=== PATIENT | male | born 1950 | race Caucasian/White ===

== ENCOUNTER 2018-08-06 16:28 | Emergency (ER) | payer MEDICARE, MEDICAID, SELFPAY ==
--- NOTE | 2018-08-06 16:34 | ED.FALL ---
HPI - Fall <JOHN Regalado - Last Filed: 08/06/18 22:25> General Chief Complaint: Fall Stated Complaint: GLF, Abrasion Time Seen by Provider: 08/06/18 16:33 Source: patient Mode of arrival: ambulatory Limitations: no limitations History of Present Illness HPI Narrative: 67-year-old male who denies any medical history denies any social history here for complaint of fall earlier today. He was brought in by ambulance due to the fall. He does report that he was drinking at the [employer] earlier today he states he had 4-5 drinks. He denies any pain no nausea or vomiting. He is able to bear weight and ambulate. He denies any other injuries or concerns at this timeframe. MD complaint: fall Related Data Previous Rx's Medication Instructions Recorded [HYDYOCORTISONE] 1 gm TOPICAL BID #30 08/20/16 cholecalciferol (vitamin D3) 2,000 unit PO QDAY #90 cap 08/21/16 [Vitamin D3] cyanocobalamin (vitamin B-12) 5,000 mcg SUBLINGUAL QDAY #90 08/21/16 [Vitamin B-12] multivitamin [Multiple Vitamins] 1 tab PO QDAY #90 tab 08/21/16 vitamin E 400 unit PO QDAY #90 cap 08/21/16 zoster vaccine live (PF) [Zostavax 0.5 ml SQ ONCE #0.5 ml 10/20/16 (PF)] melatonin 3 mg PO HS #90 tab 10/27/16 acetaminophen 650 mg PO Q8HP PRN #30 tab 12/15/16 lisinopril 20 mg PO QDAY #90 tab 12/25/16 cyclobenzaprine 10 mg PO SEE INSTRUCTIONS #20 tab 02/05/17 baclofen 0 PO TID #90 tab 03/24/17 meclizine 25 mg PO Q DAY PRN PRN #30 tab 08/19/17 aspirin 81 mg PO QDAY #90 tab 09/17/17 simvastatin 20 mg PO HS #90 tab 10/19/17 levetiracetam [Keppra] 1,000 mg PO BID #180 tab 04/20/18 clopidogrel 75 mg tablet 75 mg PO QDAY #30 tab 07/09/18 Allergies Allergy/AdvReac Type Severity Reaction Status Date / Time No Known Drug Allergies Allergy Verified 08/06/18 18:18 Review of Systems <JOHN Regalado - Last Filed: 08/06/18 22:25> Constitutional Denies chills, Denies fever(s), Denies lethargy and Denies weakness Eyes Denies change in vision, Denies eye discharge, Denies irritation and Denies loss of vision ENT Comments: Ground level fall hitting forehead Cardiovascular Denies chest pain, Denies irregular heart rhythm, Denies lightheadedness, Denies palpitations, Denies dyspnea, Denies dyspnea on exertion and Denies orthopnea Respiratory Denies cough, Denies dyspnea, Denies dyspnea on exertion and Denies wheezing Gastrointestinal Gastrointestinal: Denies abdominal pain, Denies change in bowel habits, Denies diarrhea, Denies nausea and Denies vomiting Genitourinary Denies hematuria, Denies flank pain, Denies urinary incontinence and Denies urinary urgency Musculoskeletal Denies back pain, Denies muscle weakness, Denies numbness and Denies tingling Integumentary/Breasts Denies pruritus, Denies erythema, Denies rash and Denies wounds Neurologic Denies confusion, Denies loss of vision, Denies numbness, Denies tingling and Denies weakness Psychiatric Denies anxiety, Denies confusion, Denies depression, Denies homicidal ideation and Denies suicidal ideation Endocrine Denies palpitations Hematologic/Lymphatic Denies easy bruising Allergic/Immunologic Denies wheezing Exam <JOHN Regalado - Last Filed: 08/06/18 22:25> Initial Vital Signs Initial Vital Signs: Vital Signs Temperature 98.6 F 08/06/18 17:00 Pulse Rate 84 08/06/18 17:00 Respiratory Rate 15 08/06/18 17:00 Blood Pressure 165/114 H 08/06/18 17:00 Pulse Oximetry 96 08/06/18 17:00 Const General: cooperative and well developed Nutritional Appearance: well nourished Orientation: alert, awake, oriented x3 and not confused [facility] Head: other (Small abrasion to left forehead) Mouth: oral mucosae normal and moist mucous membranes Eyes Conjunctivae: conjunctivae normal Sclera: sclerae normal Pupils: PERRL EOM: EOM intact bilaterally Neck Neck: normal visual inspection, trachea midline, No lymphadenopathy, No midline deformity and No JVD Lymphatic: No lymphedema Resp Effort & Inspection: normal respiratory effort, able to speak in complete sentences, no respiratory distress and no use of accessory muscles Auscultation: clear to auscultation bilaterally, no rales, no rhonchi and no wheezes Cardio Rate: regular rate Rhythm: regular rhythm Heart Sounds: no click, no gallops, no murmurs and no rubs Pulses: normal peripheral pulses GI Inspection: non-distended Palpation: soft, no hepatosplenomegaly, No guarding, No pulsatile mass and No tender Auscultation: normal bowel sounds Neuro General: alert, oriented x3, gait normal and no focal motor deficits Speech: speech normal <Jenna Mercer DO - Last Filed: 08/12/18 21:51> Initial Vital Signs Initial Vital Signs: Vital Signs Temperature 98.6 F 08/06/18 17:00 Pulse Rate 84 08/06/18 17:00 Respiratory Rate 15 08/06/18 17:00 Blood Pressure 165/114 H 08/06/18 17:00 Pulse Oximetry 96 08/06/18 17:00 Course <JOHN Regalado - Last Filed: 08/06/18 22:25> Orders Ordered: ED Orders 08/06/18 16:45 CT cervical spine wo con Stat CT head/brain wo con Stat Vital Signs - 8 hr 08/06/18 17:00 08/06/18 17:48 Temperature 98.6 F Pulse Rate 84 80 Respiratory Rate 15 18 Blood Pressure [Right Arm] 165/114 H 140/99 H Pulse Oximetry 96 99 <Jenna Mercer DO - Last Filed: 08/12/18 21:51> Orders Ordered: ED Orders 08/06/18 16:45 CT cervical spine wo con Stat CT head/brain wo con Stat Vital Signs - 8 hr 08/06/18 17:00 08/06/18 17:48 Temperature 98.6 F Pulse Rate 84 80 Respiratory Rate 15 18 Blood Pressure [Right Arm] 165/114 H 140/99 H Pulse Oximetry 96 99 MDM - Fall <JOHN Regalado - Last Filed: 08/06/18 22:25> Lab Data Point of Care Testing Breathalizer 0.18 Urine Dip Bedside Urine Glucose Negative Bedside Urine Bilirubin - Negative Bedside Urine Ketone - Negative Urine Specific [place] 1.010 Bedside Urine Occult Blood - Negative Bedside Urine pH 6.0 Bedside Urine Protein - Negative Bedside Urine Urobilinogen - Negative Bedside Urine Nitrite - Negative Bedside Urine Leukocytes - Negative Esterase Imaging Data c spine ct: Radiologist's impression: View Report History Print [address] [address] [address] Scan Report Signed Patient: Yassine Bledsoe MR#: [id number] : 1950 Acct:[id number] Age/Sex: 67 / M Date of Service: 08/06/18 Loc: ED Accession Number: [id number] Procedure: CT cervical spine wo con Ordering Provider: Mirza Marinelli PROCEDURE: CT CERVICAL SPINE WO CON INDICATIONS: Ground level fall striking forehead with ETOH intoxication TECHNIQUE: Noncontrast 3 mm thick sections acquired from the skull base to the T4 level. Sagittal and coronal reformats were then constructed. For radiation dose reduction, the following was used: automated exposure control, adjustment of mA and/or kV according to patient size. COMPARISON: None. FINDINGS: Image quality: Excellent. Bones: No acute fracture or dislocation. Severe degenerative changes present throughout the cervical spine. There is fusion at C4-C6. Soft tissues: Prevertebral soft tissues are normal in thickness. No paravertebral hematomas. No apical pneumothoraces. Atherosclerotic calcifications are present within the bilateral carotid arteries. IMPRESSION: 1. No acute cervical spine injury. 2. Severe degenerative change and mid cervical spine fusion. 3. Carotid atherosclerosis. Dictated by: Jenae Saavedra M.D. on 08/06/2018 at 17:17 Approved by: Jenae Saavedra M.D. on 08/06/2018 at 17:20 CT scan - head: Radiologist's impression: [address] [address] [address] Scan Report Signed Patient: Yassine Bledsoe MR#: [id number] : 1950 Acct:[id number] Age/Sex: 67 / M Date of Service: 08/06/18 Loc: ED Accession Number: [id number] Procedure: CT head/brain wo con Ordering Provider: Mirza Marinelli PROCEDURE: CT HEAD/BRAIN WO CON INDICATIONS: Ground level fall hitting head ETOH intoxication TECHNIQUE: Noncontrast 4.5 mm thick angled axial sections acquired from the foramen magnum to the vertex, with coronal and sagittal reformats. For radiation dose reduction, the following was used: automated exposure control, adjustment of mA and/or kV according to patient size. COMPARISON: None. FINDINGS: Image quality: Excellent. CSF spaces: Basal cisterns are patent. No extra-axial fluid collections. The ventricles are symmetric in size and shape. Brain: No intracranial bleeds or masses. There is cerebral volume loss for age, with resultant ventricular and sulcal prominence. There are periventricular and deep white matter chronic small vessel ischemic changes. Tiny old lacunar infarcts are noted in bilateral basal ganglia. 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 There is intracranial internal carotid artery atherosclerosis. Skull and face: Calvarium and visualized facial bones appear intact, without suspicious lesions. Sinuses: Mild because of thickening in bilateral ethmoid air cells, and left maxillary sinus is seen. Opacification of bilateral frontal sinuses also noted more prominent on the left side. Bilateral mastoid air cells are well aerated. IMPRESSION: 1. No CT evidence of acute intracranial pathology. 2. 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 Tiny old lacunar infarcts in bilateral basal ganglia. 3. Age indeterminant bilateral paranasal sinusitis more prominent in left frontal sinus. Dictated by: Simon Kirk M.D. on 08/06/2018 at 17:12 Approved by: Simon Kirk M.D. on 08/06/2018 at 17:14 [facility] Narrative Medical decision making narrative: Patient with no loss of consciousness. Minor head trauma with signs of a minor abrasion to the left forehead. No neck pain. He denies any headache. He is alert and awake oriented x3. Due to intoxication CT of the head and the neck were obtained. They were both negative. PH was 0.18. He is able to ambulate he is appears to be able to make sound decisions. He desires to go home. He is released with taxi to take him back home to his care facility. [id number] Tylenol as needed for any discomfort. For any worsening symptoms return to the emergency room. <Jenna Mercer DO - Last Filed: 08/12/18 21:51> Lab Data Point of Care Testing Breathalizer 0.18 Urine Dip Bedside Urine Glucose Negative Bedside Urine Bilirubin - Negative Bedside Urine Ketone - Negative Urine Specific [place] 1.010 Bedside Urine Occult Blood - Negative Bedside Urine pH 6.0 Bedside Urine Protein - Negative Bedside Urine Urobilinogen - Negative Bedside Urine Nitrite - Negative Bedside Urine Leukocytes - Negative Esterase Discharge Plan Departure Patient Disposition: Home Clinical Impression: Fall, Alcohol intoxication Discharge Date/Time: 08/06/18 18:30 Interventions: ED Discharge Assessment Last Done: 08/06/18 18:29 Instructions: DI for Closed Head Injury Activity Restrictions/Additional Instructions: CT of the head and neck were obtained were negative for any acute findings. Signs and symptoms presents as a minor head injury secondary to the fall with alcohol contributing. Minor head injury instructions are provided with warning signs return to the emergency room. Go home this evening relax and rest plenty of fluids use [id number] Tylenol as needed for any discomfort. For any worsening symptoms return to the emergency room. Follow up with primary care provider. Prescriptions: No Action [HYDYOCORTISONE] 1 gm Topical BID Qty: 30 RF: 5 multivitamin [Multiple Vitamins] 1 EACH tablet 1 tab PO QDAY Qty: 90 RF: 3 vitamin E 400 UNIT capsule 400 unit PO QDAY Qty: 90 RF: 3 cholecalciferol (vitamin D3) [Vitamin D3] 2,000 UNIT capsule 2,000 unit PO QDAY Qty: 90 RF: 3 cyanocobalamin (vitamin B-12) [Vitamin B-12] 5,000 MCG tablet, sublingual 5,000 mcg Sublingual QDAY Qty: 90 RF: 3 zoster vaccine live (PF) [Zostavax (PF)] 19,400 UNIT/0.65 ML suspension for reconstitution 0.5 ml SQ ONCE Qty: 0.5 RF: 0 melatonin 3 MG tablet 3 mg PO HS Qty: 90 RF: 3 acetaminophen 650 MG tablet extended release 650 mg PO Q8HP PRNQty: 30 RF: 0 lisinopril 20 MG tablet 20 mg PO QDAY Qty: 90 RF: 0 cyclobenzaprine 10 MG tablet 10 mg PO SEE INSTRUCTIONS Qty: 20 RF: 0 baclofen 10 MG tablet PO TID Qty: 90 RF: 11 meclizine 25 MG tablet 25 mg PO Q DAY PRN PRNQty: 30 RF: 0 aspirin 81 MG tablet,delayed release (DR/EC) 81 mg PO QDAY Qty: 90 RF: 5 simvastatin 20 MG tablet 20 mg PO HS Qty: 90 RF: 5 levetiracetam [Keppra] 1,000 mg tablet 1,000 mg PO BID Qty: 180 RF: 1 clopidogrel [Plavix] 75 mg tablet 75 mg PO QDAY Qty: 30 RF: 0 Referrals: [facility] [Provider Group] <Jenna Mercer, DO - Last Filed: 08/12/18 21:51> Cosign ED Attending [place] Attestation: I was immediately available in the department for consultation. Documentation has been reviewed. I agree with assessment and plan.
--- NOTE | 2018-08-06 16:45 | DI.CT.S_ITS ---
PROCEDURE: CT HEAD/BRAIN WO CON INDICATIONS: Ground level fall hitting head ETOH intoxication TECHNIQUE: Noncontrast 4.5 mm thick angled axial sections acquired from the foramen magnum to the vertex, with coronal and sagittal reformats. For radiation dose reduction, the following was used: automated exposure control, adjustment of mA and/or kV according to patient size. COMPARISON: None. FINDINGS: Image quality: Excellent. CSF spaces: Basal cisterns are patent. No extra-axial fluid collections. The ventricles are symmetric in size and shape. Brain: No intracranial bleeds or masses. There is cerebral volume loss for age, with resultant ventricular and sulcal prominence. There are periventricular and deep white matter chronic small vessel ischemic changes. Tiny old lacunar infarcts are noted in bilateral basal ganglia. 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 There is intracranial internal carotid artery atherosclerosis. Skull and face: Calvarium and visualized facial bones appear intact, without suspicious lesions. Sinuses: Mild because of thickening in bilateral ethmoid air cells, and left maxillary sinus is seen. Opacification of bilateral frontal sinuses also noted more prominent on the left side. Bilateral mastoid air cells are well aerated. IMPRESSION: 1. No CT evidence of acute intracranial pathology. 2. 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 Tiny old lacunar infarcts in bilateral basal ganglia. 3. Age indeterminant bilateral paranasal sinusitis more prominent in left frontal sinus. Dictated by: Simon Kirk M.D. on 08/06/2018 at 17:12 Approved by: Simon Kirk M.D. on 08/06/2018 at 17:14
--- NOTE | 2018-08-06 16:45 | DI.CT.S_ITS ---
PROCEDURE: CT CERVICAL SPINE WO CON INDICATIONS: Ground level fall striking forehead with ETOH intoxication TECHNIQUE: Noncontrast 3 mm thick sections acquired from the skull base to the T4 level. Sagittal and coronal reformats were then constructed. For radiation dose reduction, the following was used: automated exposure control, adjustment of mA and/or kV according to patient size. COMPARISON: None. FINDINGS: Image quality: Excellent. Bones: No acute fracture or dislocation. Severe degenerative changes present throughout the cervical spine. There is fusion at C4-C6. Soft tissues: Prevertebral soft tissues are normal in thickness. No paravertebral hematomas. No apical pneumothoraces. Atherosclerotic calcifications are present within the bilateral carotid arteries. IMPRESSION: 1. No acute cervical spine injury. 2. Severe degenerative change and mid cervical spine fusion. 3. Carotid atherosclerosis. Dictated by: Jenae Saavedra M.D. on 08/06/2018 at 17:17 Approved by: Jenae Saavedra M.D. on 08/06/2018 at 17:20
[2018-08-06 17:00] VITALS: BP 165/114; PULSE 84; RESP 15; TEMP 37; O2SAT 96
--- NOTE | 2018-08-06 17:35 | ED_ITS ---
HPI - Fall <JOHN Regalado - Last Filed: 08/06/18 22:25> General Chief Complaint: Fall Stated Complaint: GLF, Abrasion Time Seen by Provider: 08/06/18 16:33 Source: patient Mode of arrival: ambulatory Limitations: no limitations History of Present Illness HPI Narrative: 67-year-old male who denies any medical history denies any social history here for complaint of fall earlier today. He was brought in by ambulance due to the fall. He does report that he was drinking at the [employer] earlier today he states he had 4-5 drinks. He denies any pain no nausea or vomiting. He is able to bear weight and ambulate. He denies any other injuries or concerns at this timeframe. MD complaint: fall Related Data Previous Rx's Medication Instructions Recorded [HYDYOCORTISONE] 1 gm TOPICAL BID #30 08/20/16 cholecalciferol (vitamin D3) 2,000 unit PO QDAY #90 cap 08/21/16 [Vitamin D3] cyanocobalamin (vitamin B-12) 5,000 mcg SUBLINGUAL QDAY #90 08/21/16 [Vitamin B-12] multivitamin [Multiple Vitamins] 1 tab PO QDAY #90 tab 08/21/16 vitamin E 400 unit PO QDAY #90 cap 08/21/16 zoster vaccine live (PF) [Zostavax 0.5 ml SQ ONCE #0.5 ml 10/20/16 (PF)] melatonin 3 mg PO HS #90 tab 10/27/16 acetaminophen 650 mg PO Q8HP PRN #30 tab 12/15/16 lisinopril 20 mg PO QDAY #90 tab 12/25/16 cyclobenzaprine 10 mg PO SEE INSTRUCTIONS #20 tab 02/05/17 baclofen 0 PO TID #90 tab 03/24/17 meclizine 25 mg PO Q DAY PRN PRN #30 tab 08/19/17 aspirin 81 mg PO QDAY #90 tab 09/17/17 simvastatin 20 mg PO HS #90 tab 10/19/17 levetiracetam [Keppra] 1,000 mg PO BID #180 tab 04/20/18 clopidogrel 75 mg tablet 75 mg PO QDAY #30 tab 07/09/18 Allergies Allergy/AdvReac Type Severity Reaction Status Date / Time No Known Drug Allergies Allergy Verified 08/06/18 18:18 Review of Systems <JOHN Regalado - Last Filed: 08/06/18 22:25> Constitutional Denies chills, Denies fever(s), Denies lethargy and Denies weakness Eyes Denies change in vision, Denies eye discharge, Denies irritation and Denies loss of vision ENT Comments: Ground level fall hitting forehead Cardiovascular Denies chest pain, Denies irregular heart rhythm, Denies lightheadedness, Denies palpitations, Denies dyspnea, Denies dyspnea on exertion and Denies orthopnea Respiratory Denies cough, Denies dyspnea, Denies dyspnea on exertion and Denies wheezing Gastrointestinal Gastrointestinal: Denies abdominal pain, Denies change in bowel habits, Denies diarrhea, Denies nausea and Denies vomiting Genitourinary Denies hematuria, Denies flank pain, Denies urinary incontinence and Denies urinary urgency Musculoskeletal Denies back pain, Denies muscle weakness, Denies numbness and Denies tingling Integumentary/Breasts Denies pruritus, Denies erythema, Denies rash and Denies wounds Neurologic Denies confusion, Denies loss of vision, Denies numbness, Denies tingling and Denies weakness Psychiatric Denies anxiety, Denies confusion, Denies depression, Denies homicidal ideation and Denies suicidal ideation Endocrine Denies palpitations Hematologic/Lymphatic Denies easy bruising Allergic/Immunologic Denies wheezing Exam <JOHN Regalado - Last Filed: 08/06/18 22:25> Initial Vital Signs Initial Vital Signs: Vital Signs Temperature 98.6 F 08/06/18 17:00 Pulse Rate 84 08/06/18 17:00 Respiratory Rate 15 08/06/18 17:00 Blood Pressure 165/114 H 08/06/18 17:00 Pulse Oximetry 96 08/06/18 17:00 Const General: cooperative and well developed Nutritional Appearance: well nourished Orientation: alert, awake, oriented x3 and not confused [facility] Head: other (Small abrasion to left forehead) Mouth: oral mucosae normal and moist mucous membranes Eyes Conjunctivae: conjunctivae normal Sclera: sclerae normal Pupils: PERRL EOM: EOM intact bilaterally Neck Neck: normal visual inspection, trachea midline, No lymphadenopathy, No midline deformity and No JVD Lymphatic: No lymphedema Resp Effort & Inspection: normal respiratory effort, able to speak in complete sentences, no respiratory distress and no use of accessory muscles Auscultation: clear to auscultation bilaterally, no rales, no rhonchi and no wheezes Cardio Rate: regular rate Rhythm: regular rhythm Heart Sounds: no click, no gallops, no murmurs and no rubs Pulses: normal peripheral pulses GI Inspection: non-distended Palpation: soft, no hepatosplenomegaly, No guarding, No pulsatile mass and No tender Auscultation: normal bowel sounds Neuro General: alert, oriented x3, gait normal and no focal motor deficits Speech: speech normal <Jenna Mercer DO - Last Filed: 08/12/18 21:51> Initial Vital Signs Initial Vital Signs: Vital Signs Temperature 98.6 F 08/06/18 17:00 Pulse Rate 84 08/06/18 17:00 Respiratory Rate 15 08/06/18 17:00 Blood Pressure 165/114 H 08/06/18 17:00 Pulse Oximetry 96 08/06/18 17:00 Course <JOHN Regalado - Last Filed: 08/06/18 22:25> Orders Ordered: ED Orders 08/06/18 16:45 CT cervical spine wo con Stat CT head/brain wo con Stat Vital Signs - 8 hr 08/06/18 17:00 08/06/18 17:48 Temperature 98.6 F Pulse Rate 84 80 Respiratory Rate 15 18 Blood Pressure [Right Arm] 165/114 H 140/99 H Pulse Oximetry 96 99 <Jenna Mercer DO - Last Filed: 08/12/18 21:51> Orders Ordered: ED Orders 08/06/18 16:45 CT cervical spine wo con Stat CT head/brain wo con Stat Vital Signs - 8 hr 08/06/18 17:00 08/06/18 17:48 Temperature 98.6 F Pulse Rate 84 80 Respiratory Rate 15 18 Blood Pressure [Right Arm] 165/114 H 140/99 H Pulse Oximetry 96 99 MDM - Fall <JOHN Regalado - Last Filed: 08/06/18 22:25> Lab Data Point of Care Testing Breathalizer 0.18 Urine Dip Bedside Urine Glucose Negative Bedside Urine Bilirubin - Negative Bedside Urine Ketone - Negative Urine Specific [place] 1.010 Bedside Urine Occult Blood - Negative Bedside Urine pH 6.0 Bedside Urine Protein - Negative Bedside Urine Urobilinogen - Negative Bedside Urine Nitrite - Negative Bedside Urine Leukocytes - Negative Esterase Imaging Data c spine ct: Radiologist's impression: View Report History Print [address] [address] [address] Scan Report Signed Patient: Yassine Bledsoe MR#: [id number] : 1950 Acct:[id number] Age/Sex: 67 / M Date of Service: 08/06/18 Loc: ED Accession Number: [id number] Procedure: CT cervical spine wo con Ordering Provider: Mirza Marinelli PROCEDURE: CT CERVICAL SPINE WO CON INDICATIONS: Ground level fall striking forehead with ETOH intoxication TECHNIQUE: Noncontrast 3 mm thick sections acquired from the skull base to the T4 level. Sagittal and coronal reformats were then constructed. For radiation dose reduction, the following was used: automated exposure control, adjustment of mA and/or kV according to patient size. COMPARISON: None. FINDINGS: Image quality: Excellent. Bones: No acute fracture or dislocation. Severe degenerative changes present throughout the cervical spine. There is fusion at C4-C6. Soft tissues: Prevertebral soft tissues are normal in thickness. No paravertebral hematomas. No apical pneumothoraces. Atherosclerotic calcifications are present within the bilateral carotid arteries. IMPRESSION: 1. No acute cervical spine injury. 2. Severe degenerative change and mid cervical spine fusion. 3. Carotid atherosclerosis. Dictated by: Jenae Saavedra M.D. on 08/06/2018 at 17:17 Approved by: Jenae Saavedra M.D. on 08/06/2018 at 17:20 CT scan - head: Radiologist's impression: [address] [address] [address] Scan Report Signed Patient: Yassine Bledsoe MR#: [id number] : 1950 Acct:[id number] Age/Sex: 67 / M Date of Service: 08/06/18 Loc: ED Accession Number: [id number] Procedure: CT head/brain wo con Ordering Provider: Mirza Marinelli PROCEDURE: CT HEAD/BRAIN WO CON INDICATIONS: Ground level fall hitting head ETOH intoxication TECHNIQUE: Noncontrast 4.5 mm thick angled axial sections acquired from the foramen magnum to the vertex, with coronal and sagittal reformats. For radiation dose reduction, the following was used: automated exposure control, adjustment of mA and/or kV according to patient size. COMPARISON: None. FINDINGS: Image quality: Excellent. CSF spaces: Basal cisterns are patent. No extra-axial fluid collections. The ventricles are symmetric in size and shape. Brain: No intracranial bleeds or masses. There is cerebral volume loss for age , with resultant ventricular and sulcal prominence. There are periventricular and deep white matter chronic small vessel ischemic changes. Tiny old lacunar infarcts are noted in bilateral basal ganglia. 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 There is intracranial internal carotid artery atherosclerosis. Skull and face: Calvarium and visualized facial bones appear intact, without suspicious lesions. Sinuses: Mild because of thickening in bilateral ethmoid air cells, and left maxillary sinus is seen. Opacification of bilateral frontal sinuses also noted more prominent on the left side. Bilateral mastoid air cells are well aerated. IMPRESSION: 1. No CT evidence of acute intracranial pathology. 2. 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 Tiny old lacunar infarcts in bilateral basal ganglia. 3. Age indeterminant bilateral paranasal sinusitis more prominent in left frontal sinus. Dictated by: Simon Kirk M.D. on 08/06/2018 at 17:12 Approved by: Simon Kirk M.D. on 08/06/2018 at 17:14 [facility] Narrative Medical decision making narrative: Patient with no loss of consciousness. Minor head trauma with signs of a minor abrasion to the left forehead. No neck pain. He denies any headache. He is alert and awake oriented x3. Due to intoxication CT of the head and the neck were obtained. They were both negative. PH was 0.18. He is able to ambulate he is appears to be able to make sound decisions. He desires to go home. He is released with taxi to take him back home to his care facility. [id number] Tylenol as needed for any discomfort. For any worsening symptoms return to the emergency room. <Jenna Mercer DO - Last Filed: 08/12/18 21:51> Lab Data Point of Care Testing Breathalizer 0.18 Urine Dip Bedside Urine Glucose Negative Bedside Urine Bilirubin - Negative Bedside Urine Ketone - Negative Urine Specific [place] 1.010 Bedside Urine Occult Blood - Negative Bedside Urine pH 6.0 Bedside Urine Protein - Negative Bedside Urine Urobilinogen - Negative Bedside Urine Nitrite - Negative Bedside Urine Leukocytes - Negative Esterase Discharge Plan Departure Patient Disposition: Home Clinical Impression: Fall, Alcohol intoxication Discharge Date/Time: 08/06/18 18:30 Interventions: ED Discharge Assessment Last Done: 08/06/18 18:29 Instructions: DI for Closed Head Injury Activity Restrictions/Additional Instructions: CT of the head and neck were obtained were negative for any acute findings. Signs and symptoms presents as a minor head injury secondary to the fall with alcohol contributing. Minor head injury instructions are provided with warning signs return to the emergency room. Go home this evening relax and rest plenty of fluids use [id number] Tylenol as needed for any discomfort. For any worsening symptoms return to the emergency room. Follow up with primary care provider. Prescriptions: No Action [HYDYOCORTISONE] 1 gm Topical BID Qty: 30 RF: 5 multivitamin [Multiple Vitamins] 1 EACH tablet 1 tab PO QDAY Qty: 90 RF: 3 vitamin E 400 UNIT capsule 400 unit PO QDAY Qty: 90 RF: 3 cholecalciferol (vitamin D3) [Vitamin D3] 2,000 UNIT capsule 2,000 unit PO QDAY Qty: 90 RF: 3 cyanocobalamin (vitamin B-12) [Vitamin B-12] 5,000 MCG tablet, sublingual 5,000 mcg Sublingual QDAY Qty: 90 RF: 3 zoster vaccine live (PF) [Zostavax (PF)] 19,400 UNIT/0.65 ML suspension for reconstitution 0.5 ml SQ ONCE Qty: 0.5 RF: 0 melatonin 3 MG tablet 3 mg PO HS Qty: 90 RF: 3 acetaminophen 650 MG tablet extended release 650 mg PO Q8HP PRNQty: 30 RF: 0 lisinopril 20 MG tablet 20 mg PO QDAY Qty: 90 RF: 0 cyclobenzaprine 10 MG tablet 10 mg PO SEE INSTRUCTIONS Qty: 20 RF: 0 baclofen 10 MG tablet PO TID Qty: 90 RF: 11 meclizine 25 MG tablet 25 mg PO Q DAY PRN PRNQty: 30 RF: 0 aspirin 81 MG tablet,delayed release (DR/EC) 81 mg PO QDAY Qty: 90 RF: 5 simvastatin 20 MG tablet 20 mg PO HS Qty: 90 RF: 5 levetiracetam [Keppra] 1,000 mg tablet 1,000 mg PO BID Qty: 180 RF: 1 clopidogrel [Plavix] 75 mg tablet 75 mg PO QDAY Qty: 30 RF: 0 Referrals: [facility] [Provider Group] <Jenna Mercer, DO - Last Filed: 08/12/18 21:51> Cosign ED Attending [place] Attestation: I was immediately available in the department for consultation. Documentation has been reviewed. I agree with assessment and plan.
[2018-08-06 17:48] VITALS: BP 140/99; PULSE 80; RESP 18; O2SAT 99
== END 2018-08-06 18:30 | disposition home or self-care (01) ==
PROVIDERS: Emergency Provider Nurse Practitioner Family; Family Provider Family Medicine; PCP Family Medicine
DX: F10.929 Alcohol use, unspecified with intoxication, unspecified (principal); W19.XXXA Unspecified fall, initial encounter
CPT/HCPCS: 70450; 72125; 81003; 82075; 99283; 99284

== ENCOUNTER 2019-08-24 20:51 | Emergency (ER) | payer OTHER, MEDICAID, SELFPAY ==
[2019-08-24 20:59] VITALS: BP 129/89; PULSE 82; RESP 19; TEMP 36.9; O2SAT 94; BMI 23.6
--- NOTE | 2019-08-24 21:57 | DI.CT.S_ITS ---
PROCEDURE: CT HEAD/BRAIN WO CON INDICATIONS: trauma/etoh TECHNIQUE: Noncontrast 4.5 mm thick angled axial sections acquired from the foramen magnum to the vertex, with coronal and sagittal reformats. For radiation dose reduction, the following was used: automated exposure control, adjustment of mA and/or kV according to patient size. COMPARISON: [facility], CT, HEAD WITHOUT CONTRAST, 04/07/2015, 9:19. FINDINGS: Image quality: Excellent. CSF spaces: Basal cisterns are patent. No extra-axial fluid collections. The ventricles are symmetric in size and shape. Brain: No intracranial bleeds or masses. Encephalomalacia in the right occipital lobe consistent with old infarct. There is moderate cerebral volume loss for age, with resultant ventricular and sulcal prominence. There are moderate periventricular and deep white matter chronic small vessel ischemic changes. There is intracranial internal carotid artery atherosclerosis. Skull and face: Calvarium and visualized facial bones appear intact, without suspicious lesions. Sinuses: Visualized sinuses and mastoids are clear. IMPRESSION: 1. No acute intracranial abnormalities. 2. Old infarct in the right occipital 3. Cerebral volume loss and chronic microvascular ischemic changes. No significant discrepancy with the night stocker radiology preliminary report. Dictated by: Nora Cuba M.D. on 08/25/2019 at 7:23 Approved by: Nora Cuba M.D. on 08/25/2019 at 7:24
--- NOTE | 2019-08-24 21:57 | DI.CT.S_ITS ---
PROCEDURE: CT CERVICAL SPINE WO CON INDICATIONS: trauma/etoh TECHNIQUE: Noncontrast 3 mm thick sections acquired from the skull base to the T4 level. Sagittal and coronal reformats were then constructed. For radiation dose reduction, the following was used: automated exposure control, adjustment of mA and/or kV according to patient size. COMPARISON: None. FINDINGS: Image quality: Excellent. Bones: No fractures or dislocations. There is fusion at C4-C6. Moderate degenerative disc disease is present at C2-C3, C3-C4, and C6-C7. Mild to moderate bilateral facet arthropathy. Visualized superior ribs are intact. Soft tissues: Prevertebral soft tissues are normal in thickness. No paravertebral hematomas. No apical pneumothoraces. Calcified plaques in the carotid bifurcation and the coronary arteries consistent with atherosclerosis. IMPRESSION: 1. No fractures. 2. Degenerative disc and facet disease. 3. Atherosclerosis. Dictated by: Nora Cuba M.D. on 08/25/2019 at 7:24 Approved by: Nora Cuba M.D. on 08/25/2019 at 7:27
[2019-08-24 22:10] VITALS: BP 118/61; PULSE 81; RESP 16; O2SAT 100
--- NOTE | 2019-08-24 22:12 | PC.NURSE ---
Pt arrived via EMS. Report that he is intoxicated and fell. LAC to L cheek. AAOx3. CCollared on arrival. placed on cardiac monitoring. VS WNL. breathing easy and unlabored. CT Scans ordered per protocol as pt meets [facility] criteria. Labs drawn by lab. pt resting and appears comfortable. calm and cooperative with staff.
[2019-08-24 22:14] LABS: Add Manual Diff / Slide Review NO; Basophils Absolute Auto 100 /uL (0-100); Basophils Percent Auto 0.9 % (0-2); Eosinophils Absolute Auto 100 /uL (0-450); Eosinophils Percent Auto 1.1 % (2-4); Hematocrit 44.2 % (41-53); Lymphocytes Absolute Auto 900 /uL (1100-4500); Lymphocytes Percent Auto 12.4 % (25-40); Mean Corpuscular Hemoglobin 31.2 PG (26-34); Mean Corpuscular Volume 91.6 fL (80-100); Monocytes Absolute Auto 500 /uL (0-900); Monocytes Percent Auto 6.3 % (3-14); Neutrophils Absolute Auto 5800 /uL (1500-7000); Neutrophils Percent Auto 79.3 % (50-75); Platelet Count 191 X10^3/uL (150-400); Red Blood Cell Count 4.82 X10^6/uL (4.5-5.9); Red Cell Distribution Width 13.6 % (11.6-14.8); White Blood Cell Count 7.3 X10^3/uL (4.5-11.0)
[2019-08-24 22:20] LABS: INR 0.9 (0.9-1.3); Prothrombin Time 10.8 SECONDS (10.1-12.7)
[2019-08-24 22:24] LABS: Alanine Aminotransferase 24 IU/L (21-72); Albumin 4.2 g/dL (3.5-5.0); Albumin Globulin Ratio 1.4 (1.0-2.8); Alkaline Phosphatase 105 U/L (38-126); Aspartate Aminotransferase 32 IU/L (17-59); BUN Creatinine Ratio 25.7 (6-22); Bilirubin Total 0.3 mg/dL (0.2-1.3); Blood Urea Nitrogen 18 mg/dL (9-20); Calcium 8.8 mg/dL (8.4-10.2); Carbon Dioxide 27 mmol/L (22-32); Chloride 107 mmol/L (98-107); Estimated Glomerular Filt Rate > 60.0 mL/min (>60); Glucose 104 mg/dL (80-110); HEMOLYSIS < 15 (0-50); Sodium 145 mmol/L (137-145); Total Protein 7.2 g/dL (6.3-8.2)
--- NOTE | 2019-08-24 23:09 | ED.FALL ---
HPI - Fall General Chief Complaint: Fall Stated Complaint: ETOH, fall w/facial lac Time Seen by Provider: 08/24/19 22:44 Source: patient and EMS Mode of arrival: EMS Limitations: no limitations History of Present Illness HPI Narrative: The patient fell prior to arrival. [place] the [place], had a few drinks. He fell when leaving the establishment. He was transferred here by EMS after a fall, he has a left facial injury. He denies LOC. He has no visual changes. He has no neck pain. He has no bleeding from his nose or mouth. He is intoxicated. He is on medications for chronic dizziness. There was a concern about anticoagulation, his med list has Plavix listed. He says he is not on anticoagulants at this time. He has no complaints other than the left facial injury. He is oriented x3 at the time of my evaluation with him Related Data Previous Rx's Medication Instructions Recorded [HYDYOCORTISONE] 1 gm TOPICAL BID #30 08/20/16 cholecalciferol (vitamin D3) 2,000 unit PO QDAY #90 cap 08/21/16 [Vitamin D3] cyanocobalamin (vitamin B-12) 5,000 mcg SUBLINGUAL QDAY #90 08/21/16 [Vitamin B-12] multivitamin [Multiple Vitamins] 1 tab PO QDAY #90 tab 08/21/16 vitamin E 400 unit PO QDAY #90 cap 08/21/16 zoster vaccine live (PF) [Zostavax 0.5 ml SQ ONCE #0.5 ml 10/20/16 (PF)] melatonin 3 mg PO HS #90 tab 10/27/16 acetaminophen 650 mg PO Q8HP PRN #30 tab 12/15/16 lisinopril 20 mg PO QDAY #90 tab 12/25/16 cyclobenzaprine 10 mg PO SEE INSTRUCTIONS #20 tab 02/05/17 baclofen 0 PO TID #90 tab 03/24/17 meclizine 25 mg PO Q DAY PRN PRN #30 tab 08/19/17 aspirin 81 mg PO QDAY #90 tab 09/17/17 clopidogrel 75 mg tablet 75 mg PO QDAY #30 tab 07/09/18 simvastatin 20 mg PO HS #90 tab 04/25/19 levetiracetam [Keppra] 1,000 mg PO BID #180 tab 06/02/19 Allergies Allergy/AdvReac Type Severity Reaction Status Date / Time No Known Drug Allergies Allergy Verified 08/06/18 18:18 Review of Systems Review of Systems ROS Unobtainable: All systems reviewed & are unremarkable except as noted in HPI and below Constitutional Constitutional: Denies chills, Denies fever(s), Denies frequent falls, Denies headache(s), Denies lethargy and Denies weakness Comments: Poor balance. Dizziness. Eyes Eyes: Denies change in vision, Denies eye discharge, Denies irritation and Denies loss of vision ENT Ears, Nose, Mouth, and Throat: Reports dizziness, Denies headache(s), Denies mouth lesions, Denies mouth pain, Denies neck pain and Denies sore throat Cardiovascular Cardiovascular: Denies chest pain, Denies irregular heart rhythm, Denies lightheadedness, Denies palpitations, Denies dyspnea, Denies dyspnea on exertion and Denies orthopnea Respiratory Respiratory: Denies cough, Denies dyspnea, Denies dyspnea on exertion and Denies wheezing Gastrointestinal Gastrointestinal: Denies abdominal pain, Denies change in bowel habits, Denies diarrhea, Denies nausea and Denies vomiting Musculoskeletal Musculoskeletal: Denies back pain and Denies neck pain Integumentary/Breasts Skin/Breast: Denies pruritus, Denies erythema, Denies rash and Denies wounds Neurologic Neurologic: Denies behavioral changes, Reports dizziness, Denies frequent falls, Denies headache(s), Denies loss of vision and Denies weakness Psychiatric Psychiatric: Denies anxiety and Denies behavioral changes Endocrine Endocrine: Denies palpitations Allergic/Immunologic Allergic/Immunologic: Denies wheezing Exam Initial Vital Signs Initial Vital Signs: Vital Signs Temperature 98.4 F 08/24/19 20:59 Pulse Rate 82 08/24/19 20:59 Respiratory Rate 19 08/24/19 20:59 Blood Pressure 129/89 08/24/19 20:59 Pulse Oximetry 94 08/24/19 20:59 Const General: cooperative and well developed Nutritional Appearance: well nourished Orientation: alert, awake, oriented x3 and not confused Other: His breath smells of alcohol HENMT Head: abrasion (Left cheek.) Ears: external ears normal and TM's normal bilaterally Nose: external nose normal and No nasal discharge Face and sinus: sinuses nontender and face symmetric Mouth: oral mucosae normal and moist mucous membranes Teeth and gingiva: dentition normal and other (No malocclusion) Throat: tonsils normal and uvula midline Eyes General: appearance normal, both eyes and all related structures Eyelids: eyelids normal Conjunctivae: conjunctivae normal Sclera: sclerae normal Pupils: PERRL EOM: EOM intact bilaterally Neck Neck: normal visual inspection, trachea midline, No anterior neck swelling, No lymphadenopathy, No midline deformity, No tender and No JVD Chest Chest: normal inspection of the chest Resp Effort & Inspection: normal respiratory effort, able to speak in complete sentences, no respiratory distress and no use of accessory muscles Auscultation: clear to auscultation bilaterally, no rales, no rhonchi and no wheezes Cardio Rate: regular rate Rhythm: regular rhythm Heart Sounds: no click, no gallops, no murmurs and no rubs Pulses: normal peripheral pulses GI Inspection: non-distended Palpation: soft, no hepatosplenomegaly, No guarding, No pulsatile mass and No tender Auscultation: normal bowel sounds Back/Spine/Pelvis Back: No back tenderness Cervical Spine: cervical ROM normal and No pain with cervical ROM Thoracic/Lumbar Spine: thoracic and lumbar spine normal to inspection Skin General: no rashes or lesions noted, No jaundice and No petechiae Neuro General: alert, oriented x3, gait normal and no focal motor deficits Speech: speech normal Extrem General: full ROM, no clubbing, cyanosis or edema, no pedal edema and no calf tenderness Psych Appearance: well kempt Mental Status: mental status grossly normal Attitude: cooperative [facility] Medical History (Updated 08/24/19 @ 23:18 by Bryan Huston MD) Alcohol use disorder (12/31/15) Cerebrovascular disease (06/14/15) 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) Dizziness of unknown cause (10/20/16) Pure hypercholesterolemia (04/14/16) Surgical History (Updated 08/24/19 @ 23:12 by Bryan Huston MD) No significant past surgical history (Acute) Family History Brother Age: 40 Heart disease Social History (Updated 08/24/19 @ 23:12 by Bryan Huston MD) Smoking Status: Former smoker alcohol intake: current Family History Brother Age: 40 Heart disease Social History (Updated 08/24/19 @ 23:12 by Bryan Huston MD) Smoking Status: Former smoker alcohol intake: current Course Course Course Narrative: The patient has a left facial abrasion, the wound was cleansed and managed by his nurse. Tetanus was given. Head CT and C-spine show no acute processes. The patient was placed in C-spine precautions upon arrival. The C-spine has been cleared and the collar removed. Orders Ordered: ED Orders 08/24/19 21:57 CT cervical spine wo con Stat CT head/brain wo con Stat 08/24/19 22:05 Complete Blood Count AUTO DIFF Stat Comprehensive Metabolic Panel Stat PT [Prothrombin Time INR] Stat Discontinued Medications Tetanus/Diphtheria Toxoids (Td) 0.5 ml IM .ONCE ONE Stop: 08/24/19 23:19 Last Admin: 08/24/19 23:22 Dose: Not Given Documented by: LEIGH Vital Signs Vital signs: Vital Signs - 8 hr 08/24/19 20:59 08/24/19 22:10 08/25/19 00:09 Temperature 98.4 F Pulse Rate 82 81 82 Respiratory Rate 19 16 16 Blood Pressure 129/89 Blood Pressure [Left Arm] 118/61 126/81 Pulse Oximetry 94 100 97 MDM - Fall Lab Data Result diagrams: 08/24/19 22:05 08/24/19 22:05 Labs: Lab Results 08/24/19 08/24/19 08/24/19 Range/Units 22:05 22:05 22:05 WBC 7.3 (4.5-11.0) X10^3/uL RBC 4.82 (4.5-5.9) X10^6/uL Hgb 15.0 (13.5-17.5) g/dL Hct 44.2 (41-53) % MCV 91.6 (80-100) fL MCH 31.2 (26-34) PG MCHC 34.0 (30-36) % RDW 13.6 (11.6-14.8) % Plt Count 191 (150-400) X10^3/uL Neut % (Auto) 79.3 H (50-75) % Lymph % (Auto) 12.4 L (25-40) % [place] % (Auto) 6.3 (3-14) % Eos % (Auto) 1.1 L (2-4) % Baso % (Auto) 0.9 (0-2) % Neut # (Auto) 5800 (5727-5650) /uL Lymph # (Auto) 900 L (5724-9825) /uL [place] # (Auto) 500 (0-900) /uL Eos # (Auto) 100 (0-450) /uL Baso # (Auto) 100 (0-100) /uL PT 10.8 (10.1-12.7) SECONDS INR 0.9 (0.9-1.3) Sodium 145 (137-145) mmol/L Potassium 4.0 (3.4-5.1) mmol/L Chloride 107 (98-107) mmol/L Carbon Dioxide 27 (22-32) mmol/L BUN 18 (9-20) mg/dL Creatinine 0.70 (0.66-1.25) mg/dL Estimated GFR > 60.0 (>60) mL/min BUN/Creatinine Ratio 25.7 H (6-22) Glucose 104 (80-110) mg/dL Calcium 8.8 (8.4-10.2) mg/dL Total Bilirubin 0.3 (0.2-1.3) mg/dL AST 32 (17-59) IU/L ALT 24 (21-72) IU/L Alkaline Phosphatase 105 (38-126) U/L Total Protein 7.2 (6.3-8.2) g/dL Albumin 4.2 (3.5-5.0) g/dL Globulin 3.0 (1.7-4.1) g/dL Albumin/Globulin Ratio 1.4 (1.0-2.8) Imaging Data CT scan - head: Radiologist's impression: No acute intracranial process. Atrophy. Old infarcts. CT scan C-spine.:: Radiologist's impression: No acute fracture. Multiple levels of spondylosis. Severe calcific bulbar disease. Discharge Plan Departure Patient Disposition: Home Clinical Impression: Abrasion of face Qualifiers: Encounter type: initial encounter Qualified Code(s): S00.81XA - Abrasion of other part of head, initial encounter Discharge Date/Time: 08/25/19 00:15 Instructions: How to Prevent Falls, DI for Abrasion Activity Restrictions/Additional Instructions: Return the ER as needed. Prescriptions: No Action [HYDYOCORTISONE] 1 gm Topical BID Qty: 30 RF: 5 multivitamin [Multiple Vitamins] 1 EACH tablet 1 tab PO QDAY Qty: 90 RF: 3 vitamin E 400 UNIT capsule 400 unit PO QDAY Qty: 90 RF: 3 cholecalciferol (vitamin D3) [Vitamin D3] 2,000 UNIT capsule 2,000 unit PO QDAY Qty: 90 RF: 3 cyanocobalamin (vitamin B-12) [Vitamin B-12] 5,000 MCG tablet, sublingual 5,000 mcg Sublingual QDAY Qty: 90 RF: 3 zoster vaccine live (PF) [Zostavax (PF)] 19,400 UNIT/0.65 ML suspension for reconstitution 0.5 ml SQ ONCE Qty: 0.5 RF: 0 melatonin 3 MG tablet 3 mg PO HS Qty: 90 RF: 3 acetaminophen 650 MG tablet extended release 650 mg PO Q8HP PRNQty: 30 RF: 0 lisinopril 20 MG tablet 20 mg PO QDAY Qty: 90 RF: 0 cyclobenzaprine 10 MG tablet 10 mg PO SEE INSTRUCTIONS Qty: 20 RF: 0 baclofen 10 MG tablet 0 PO TID Qty: 90 RF: 11 meclizine 25 MG tablet 25 mg PO Q DAY PRN PRNQty: 30 RF: 0 aspirin 81 MG tablet,delayed release (DR/EC) 81 mg PO QDAY Qty: 90 RF: 5 clopidogrel [Plavix] 75 mg tablet 75 mg PO QDAY Qty: 30 RF: 0 simvastatin 20 mg tablet 20 mg PO HS Qty: 90 RF: 3 levetiracetam [Keppra] 1,000 mg tablet 1,000 mg PO BID Qty: 180 RF: 1 Referrals: Kofi Tate MD [Primary Care Provider] -
--- NOTE | 2019-08-24 23:34 | PC.NURSE ---
Pt's wound cleansed and dressed.
[2019-08-25 00:09] VITALS: BP 126/81; PULSE 82; RESP 16; O2SAT 97
== END 2019-08-25 00:15 | disposition home or self-care (01) ==
PROVIDERS: Emergency Provider Emergency Medicine; Family Provider Family Medicine; PCP Family Medicine
DX: S09.93XA Unspecified injury of face, initial encounter (principal); S00.81XA Abrasion of other part of head, initial encounter; W19.XXXA Unspecified fall, initial encounter; Z23 Encounter for immunization
CPT/HCPCS: 36415; 70450; 72125; 80053; 85025; 85610; 90471; 99283; 99284

== ENCOUNTER 2019-11-25 19:27 | Emergency (ER) | payer MEDICARE, MEDICAID, SELFPAY ==
[2019-11-25 19:29] VITALS: BP 135/92; PULSE 72; RESP 20; TEMP 36.6; O2SAT 95
--- NOTE | 2019-11-25 19:40 | DI.CT.S_ITS ---
PROCEDURE: CT FACIAL BONES WO CON INDICATIONS: fall with head/facial injury TECHNIQUE: Noncontrast 2.5 mm thick axial images acquired from the mandible through the frontal sinuses, with coronal and sagittal reformatting. For radiation dose reduction, the following was used: automated exposure control, adjustment of mA and/or kV according to patient size. COMPARISON: None. FINDINGS: Image quality: Excellent. Bones and teeth: Orbital linares are intact. Sinus linares show no fracture or deformity. Nasal bones and septum are intact. Visualized portions of the mandible demonstrate no fractures or subluxation. Zygomatic arches are intact. Pterygoid plates are intact. Visualized portions of the skull base and auditory canals are intact. Numerous maxillary periapical lucencies Sinuses: Bilateral ethmoid partial opacification and minimal right sphenoid sinus disease. Near-complete opacification of the left maxillary sinus. Mastoid air cells are aerated. Soft tissues: Left periorbital soft tissue swelling. Vascular: Visualized vascular structures appear normal in the absence of contrast. Bony vascular foramina and canals are intact. IMPRESSION: No fracture Bilateral ethmoid, right sphenoid and left maxillary sinus disease Left periorbital soft tissue swelling Dictated by: Robert Freire M.D. on 11/25/2019 at 20:35 Approved by: Robert Freire M.D. on 11/25/2019 at 20:40
--- NOTE | 2019-11-25 19:40 | DI.CT.S_ITS ---
PROCEDURE: CT HEAD/BRAIN WO CON INDICATIONS: fall with head injury, etoh TECHNIQUE: Noncontrast 4.5 mm thick angled axial sections acquired from the foramen magnum to the vertex, with coronal and sagittal reformats. For radiation dose reduction, the following was used: automated exposure control, adjustment of mA and/or kV according to patient size. COMPARISON: [facility], CT, CT HEAD/BRAIN WO CON, 08/24/2019, 22:28. FINDINGS: Image quality: Motion degraded examination CSF spaces: Basal cisterns are patent. No extra-axial fluid collections. The ventricles are symmetric in size and shape. Brain: No intracranial bleeds or masses. There is cerebral volume loss for age, with resultant ventricular and sulcal prominence. There are periventricular and deep white matter chronic small vessel ischemic changes. There is intracranial internal carotid artery atherosclerosis. Skull and face: Calvarium and visualized facial bones appear intact, without suspicious lesions. Sinuses: Visualized sinuses and mastoids are clear. IMPRESSION: No acute intracranial process. Dictated by: Robert Freire M.D. on 11/25/2019 at 20:32 Approved by: Robert Freire M.D. on 11/25/2019 at 20:34
[2019-11-25 19:50] VITALS: BP 139/93; PULSE 73; O2SAT 97
--- NOTE | 2019-11-25 20:36 | ED_ITS ---
HPI - Fall General Chief Complaint: Fall Stated Complaint: Fall, Laceration, ETOH Time Seen by Provider: 11/25/19 19:27 Source: patient Mode of arrival: Ambulatory Limitations: no limitations History of Present Illness HPI Narrative: 69-year-old male nonsmoker without significant medical history presents by EMS for evaluation of a fall from standing with head and face injury. He has full recall and denies any loss of consciousness, vomiting or other, distracting injuries. He states that he is chronically dizzy and has been evaluated on multiple occasions and has been told that's just how it's going to be. He had been at a bar and had a few beers when he tripped on uneven concrete and fell forward striking his head. He takes no blood thinners and did not want to come in but the paramedics talked him into evaluation due to the laceration which is bleeding over his left eye. His GCS is 15 and though he admits to drinking he is speaking clearly and demonstrates full capacity MD complaint: fall Onset (ago): minute(s) Fall from: standing Fall witnessed: yes, by bystander Place fall occurred: street Loss of consciousness: none Prolonged down time: no Symptoms prior to fall: dizziness Context: tripped/slipped Location of injury: head and face Associated symptoms (after fall): denies Related Data Previous Rx's Medication Instructions Recorded [HYDYOCORTISONE] 1 gm TOPICAL BID #30 08/20/16 cholecalciferol (vitamin D3) 2,000 unit PO QDAY #90 cap 08/21/16 [Vitamin D3] cyanocobalamin (vitamin B-12) 5,000 mcg SUBLINGUAL QDAY #90 08/21/16 [Vitamin B-12] multivitamin [Multiple Vitamins] 1 tab PO QDAY #90 tab 08/21/16 vitamin E 400 unit PO QDAY #90 cap 08/21/16 zoster vaccine live (PF) [Zostavax 0.5 ml SQ ONCE #0.5 ml 10/20/16 (PF)] melatonin 3 mg PO HS #90 tab 10/27/16 acetaminophen 650 mg PO Q8HP PRN #30 tab 12/15/16 lisinopril 20 mg PO QDAY #90 tab 12/25/16 cyclobenzaprine 10 mg PO SEE INSTRUCTIONS #20 tab 02/05/17 baclofen 0 PO TID #90 tab 03/24/17 meclizine 25 mg PO Q DAY PRN PRN #30 tab 08/19/17 aspirin 81 mg PO QDAY #90 tab 09/17/17 clopidogrel 75 mg tablet 75 mg PO QDAY #30 tab 07/09/18 levetiracetam [Keppra] 1,000 mg PO BID #180 tab 06/02/19 simvastatin 20 mg tablet See Rx Instructions .ROUTE 10/18/19 .COMPLEX #30 tablet Allergies Allergy/AdvReac Type Severity Reaction Status Date / Time No Known Drug Allergies Allergy Verified 08/06/18 18:18 Review of Systems Constitutional Constitutional: Denies chills, Denies fatigue, Denies fever(s), Denies frequent falls, Denies lethargy and Denies weakness Eyes Eyes: Denies change in vision, Denies eye discharge, Denies irritation and Denies loss of vision ENT Ears, Nose, Mouth, and Throat: Denies change in voice, Denies dizziness, Denies neck pain, Denies sore throat and Denies throat swelling Cardiovascular Cardiovascular: Denies chest pain, Denies irregular heart rhythm, Denies lightheadedness, Denies palpitations, Denies dyspnea, Denies dyspnea on exertion and Denies orthopnea Respiratory Respiratory: Denies cough, Denies dyspnea, Denies dyspnea on exertion and Denies wheezing Gastrointestinal Gastrointestinal: Denies abdominal pain, Denies change in bowel habits, Denies diarrhea, Denies nausea and Denies vomiting Genitourinary Genitourinary: Denies hematuria, Denies flank pain, Denies urinary incontinence and Denies urinary urgency Musculoskeletal Musculoskeletal: Denies back pain, Denies muscle weakness, Denies neck pain, Denies numbness and Denies tingling Integumentary/Breasts Skin/Breast: Denies pruritus, Denies erythema, Denies rash and Reports wounds Neurologic Neurologic: Denies behavioral changes, Denies confusion, Denies dizziness, Denies frequent falls, Denies loss of vision, Denies numbness, Denies tingling and Denies weakness Psychiatric Psychiatric: Denies anxiety, Denies behavioral changes, Denies confusion, Denies depression, Denies homicidal ideation and Denies suicidal ideation Endocrine Endocrine: Denies fatigue, Denies flushing and Denies palpitations Hematologic/Lymphatic Hematologic/Lymphatic: Denies easy bruising Allergic/Immunologic Allergic/Immunologic: Denies urticaria, Denies throat swelling and Denies wheezing Patient History Medical History Alcohol use disorder (12/31/15) Cerebrovascular disease (06/14/15) 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 Well- nourished, well-developed patient, in mild distress. GCS 15, speaking clearly HEAD: Slowly bleeding pair of 1 cm lacerations above left eye over brow. No evidence of depressed skull fracture. Additionally there is 2 cm swollen area over left zygoma which is tender.. EYES: Pupils equal round and reactive. Extraocular motions intact. No scleral icterus. No injection or drainage. ENT: Nose without bleeding, purulent drainage. No nasal septal hematoma no malocclusion no hemotympanum Throat without erythema, tonsillar hypertrophy or exudate. Airway patent. NECK: Trachea midline. Non tender in the midline, no step-offs CARDIOVASCULAR: Regular rate and rhythm without murmurs, gallops, or rubs. RESPIRATORY: Clear to auscultation. Breath sounds equal bilaterally. No wheezes, rales, or rhonchi. GASTROINTESTINAL: Abdomen soft, non-tender, nondistended. EXTREMITIES: No edema or joint tenderness. BACK: Nontender without deformity or crepitance. No flank tenderness. NEURO: AOx3. SKIN: No rash or erythema of visible areas other than that which is mentioned above Initial Vital Signs Initial Vital Signs: Vital Signs Temperature 98 F 11/25/19 19:29 Pulse Rate 72 11/25/19 19:29 Respiratory Rate 20 11/25/19 19:29 Blood Pressure 135/92 H 11/25/19 19:29 Pulse Oximetry 95 11/25/19 19:29 Procedures Laceration Repair Laceration 1: Site: face Side (If applicable): left Size (cm): 1 Description: stellate Depth: simple, single layer Local Anesthetic: lidocaine 1% and with epi Amount of anesthesia used (mL): 2 Number of sutures: 3 Technique: simple, interrupted Laceration 2: Site: face Side (If applicable): left Size (cm): 1 Description: stellate Depth: simple, single layer Local Anesthetic: lidocaine 1% and with epi Amount of anesthesia used (mL): 2 Pre-repair: wound explored Skin layer closed with: nylon Size (cm): 5-0 Number of sutures: 3 Technique: simple, interrupted Course Orders Ordered: ED Orders 11/25/19 19:40 CT facial bones wo con Stat CT head/brain wo con Stat Discontinued Medications Diphtheria/Tetanus/Acell Pertussis (Adacel) 0.5 ml IM .ONCE ONE Stop: 11/25/19 19:29 Last Admin: 11/25/19 21:00 Dose: 0.5 ml Documented by: YVETTE Lidocaine/Epinephrine (Xylocaine 1% W/Epi) 1 ml SUBCUT NOW ONE Stop: 11/25/19 19:29 Vital Signs Vital signs: Vital Signs - 8 hr 11/25/19 19:29 11/25/19 19:50 11/25/19 21:05 Temperature 98 F Pulse Rate 72 73 75 Respiratory Rate 20 Blood Pressure 135/92 H Blood Pressure [Right Arm] 139/93 H 119/90 Pulse Oximetry 95 97 96 MDM - Fall Imaging Data CT scan - head: Radiologist's Impression: Yassine Rankin 69 M 1950 [place] [address] CT Scan Report Signed Patient: Yassine Rankin EMR#: [id number] : 1950Acct:[id number] Age/Sex: 69 / MDate of Service: 11/25/19 Loc: ED Accession Number: [id number] Procedure: CT facial bones wo con Ordering Provider: Asif Birmingham D.O. PROCEDURE: CT FACIAL BONES WO CON INDICATIONS: fall with head/facial injury TECHNIQUE: Noncontrast 2.5 mm thick axial images acquired from the mandible through the frontal sinuses, with coronal and sagittal reformatting. For radiation dose reduction, the following was used: automated exposure control, adjustment of mA and/or kV acc ording to patient size. COMPARISON: None. FINDINGS: Image quality: Excellent. Bones and teeth: Orbital linares are intact. Sinus linares show no fracture or deformity. Nasal bones and septum are intact. Visualized portions of the mandible demonstrate no fractures or subluxation. Zygomatic arches are intact. Pterygoid plates are intact. Visualized portions of the skull base and auditory canals are intact. Numerous maxillary periapical lucencies Sinuses: Bilateral ethmoid partial opacification and minimal right sphenoid sinus disease. Near-complete opacification of the left maxillary sinus. Mastoid air cells are aerated. Soft tissues: Left periorbital soft tissue swelling. Vascular: Visualized vascular structures appear normal in the absence of contrast. Bony vascular foramina and canals are intact. IMPRESSION: No fracture Bilateral ethmoid, right sphenoid and left maxillary sinus disease Left periorbital soft tissue swelling Dictated by: Robert Freire M.D. on 11/25/2019 at 20:35 Approved by: Robert Freire M.D. on 11/25/2019 at 20:[address]: Radiologist's Impression: Chart Viewer Diagnostics DATE TYPE STATUS AUTHOR Belle 11/25/19 19:40 Robert Freire 11/25/19 19:40 Robert Freire 08/24/19 21:57 Nellie Cuba 08/24/19 21:57 Nellie Cuba 08/06/18 16:45 Simon Kirk 08/06/18 16:45 Jenae Saavedra Jack E 69, M111/26/1949 [facility] 72.575kg Fall Search Chart No Data to Display NF - Not included in interaction checking ONSET 10/20/16 04/14/16 04/14/16 06/14/15 12/31/15 06/14/15 11/26/15 12/31/15 12/31/15 12/31/15 04/14/16 04/14/16 11/25/19 21:05 Yassine Rankin 69 M [address] [address] [address] Scan Report Signed Patient: Chucho,Yassine EMR#: [id number] : 1950Acct:[id number] Age/Sex: 69 / MDate of Service: 11/25/19 Loc: ED Accession Number: [id number] Procedure: CT head/brain wo con Ordering Provider: Asif Birmingham D.O. PROCEDURE: CT HEAD/BRAIN WO CON INDICATIONS: fall with head injury, etoh TECHNIQUE: Noncontrast 4.5 mm thick angled axial sections acquired from the foramen magnum to the vertex, with coronal and sagittal reformats. For radiation dose reduction, the following was used: automated exposure control, adjustment of mA and/or kV according to patient size. COMPARISON: [facility], CT, CT HEAD/BRAIN WO CON, 08/24/2019, 22:28. FINDINGS: Image quality: Motion degraded examination CSF spaces: Basal cisterns are patent. No extra-axial fluid collections. The ventricles are symmetric in size and shape. Brain: No intracranial bleeds or masses. There is cerebral volume loss for age, with resultant ventricular and sulcal prominence. There are periventricular and deep white matter chronic small vessel ischemic changes. There is intracranial internal carotid artery atherosclerosis. Skull and face: Calvarium and visualized facial bones appear intact, without suspicious lesions. Sinuses: Visualized sinuses and mastoids are clear. IMPRESSION: No acute intracranial process. Dictated by: Robert Freire M.D. on 11/25/2019 at 20:32 Approved by: Robert Freire M.D. on 11/25/2019 at 20:34 MDM Narrative Medical decision making narrative: Ground level fall, no LOC/vomiting, negative imaging. Patient with full recall, speaking clearly, steady gait denies other injury. Return precautions given, questions answered. Discharge Plan Departure Patient Disposition: Home Clinical Impression: Facial laceration, Contusion of face Discharge Date/Time: 11/25/19 21:33 Instructions: DI for Laceration Repair Activity Restrictions/Additional Instructions: Please keep the wound clean and dry to the best of your ability. Please monitor for signs of infection such as redness to the skin or increasing pain. Have the sutures removed by your doctor in about 7 days. If you are unable to get into your doctor, we would be happy to remove the sutures in that same timeframe. Prescriptions: No Action [HYDYOCORTISONE] 1 gm Topical BID Qty: 30 RF: 5 multivitamin [Multiple Vitamins] 1 EACH tablet 1 tab PO QDAY Qty: 90 RF: 3 vitamin E 400 UNIT capsule 400 unit PO QDAY Qty: 90 RF: 3 cholecalciferol (vitamin D3) [Vitamin D3] 2,000 UNIT capsule 2,000 unit PO QDAY Qty: 90 RF: 3 cyanocobalamin (vitamin B-12) [Vitamin B-12] 5,000 MCG tablet, sublingual 5,000 mcg Sublingual QDAY Qty: 90 RF: 3 zoster vaccine live (PF) [Zostavax (PF)] 19,400 UNIT/0.65 ML suspension for reconstitution 0.5 ml SQ ONCE Qty: 0.5 RF: 0 melatonin 3 MG tablet 3 mg PO HS Qty: 90 RF: 3 acetaminophen 650 MG tablet extended release 650 mg PO Q8HP PRNQty: 30 RF: 0 lisinopril 20 MG tablet 20 mg PO QDAY Qty: 90 RF: 0 cyclobenzaprine 10 MG tablet 10 mg PO SEE INSTRUCTIONS Qty: 20 RF: 0 baclofen 10 MG tablet 0 PO TID Qty: 90 RF: 11 meclizine 25 MG tablet 25 mg PO Q DAY PRN PRNQty: 30 RF: 0 aspirin 81 MG tablet,delayed release (DR/EC) 81 mg PO QDAY Qty: 90 RF: 5 clopidogrel [Plavix] 75 mg tablet 75 mg PO QDAY Qty: 30 RF: 0 levetiracetam [Keppra] 1,000 mg tablet 1,000 mg PO BID Qty: 180 RF: 1 simvastatin 20 mg tablet See Rx Instructions .ROUTE .COMPLEX Qty: 30 RF: 1 Referrals: Kofi Tate MD [Primary Care Provider] -
[2019-11-25] MEDS: TET,DIPH,PERTUSS(ACELL),VAC/PF 0.5 ML SYRINGE IM (21:00)
[2019-11-25 21:05] VITALS: BP 119/90; PULSE 75; O2SAT 96
== END 2019-11-25 21:33 | disposition home or self-care (01) ==
PROVIDERS: Emergency Provider Emergency Medicine; Family Provider Family Medicine; PCP Family Medicine
DX: S01.112A Laceration without foreign body of left eyelid and periocular area, initial encounter (principal); S00.83XA Contusion of other part of head, initial encounter; W01.198A Fall on same level from slipping, tripping and stumbling with subsequent striking against other object, initial encounter; Z23 Encounter for immunization
CPT/HCPCS: 12011; 70450; 70486; 96372; 99283; 99284; 90715

== ENCOUNTER 2022-07-25 14:04 | Emergency (ER) | payer MEDICARE, MEDICAID, SELFPAY ==
--- NOTE | 2022-07-25 14:04 | DI.CT.S_ITS ---
PROCEDURE: CT HEAD/BRAIN WO CON INDICATIONS: fall/intoxicated unwitnessed TECHNIQUE: Noncontrast 4.5 mm thick angled axial sections acquired from the foramen magnum to the vertex, with coronal and sagittal reformats. For radiation dose reduction, the following was used: automated exposure control, adjustment of mA and/or kV according to patient size. COMPARISON: [facility], CT, HEAD WITHOUT CONTRAST, 04/07/2015, 9:19. [facility], CT, CT HEAD/BRAIN WO CON, 08/24/2019, 22:28. [facility], CT, CT HEAD/BRAIN WO CON, 11/25/2019, 20:03. FINDINGS: Image quality: Excellent. CSF spaces: Basal cisterns are patent. No extra-axial fluid collections. The ventricles are symmetric in size and shape. Brain: No intracranial bleeds or masses. There is cerebral volume loss for age, with resultant ventricular and sulcal prominence. There are periventricular and deep white matter chronic small vessel ischemic changes. Areas of remote infarction can be seen, including lacunar infarctions involving the basal ganglia appear There is intracranial internal carotid artery atherosclerosis. Skull and face: Calvarium and visualized facial bones appear intact, without suspicious lesions. Sinuses: Visualized sinuses and mastoids are clear. IMPRESSION: No acute intracranial hemorrhage is seen. No acute intracranial process is seen. Remote, stable areas of mild infarction can be seen. Note is made of age-appropriate brain parenchymal volume loss and chronic small vessel ischemic changes. Dictated by: Eriberto Styles M.D. on 07/25/2022 at 13:39 Approved by: Eriberto Styles M.D. on 07/25/2022 at 13:40
--- NOTE | 2022-07-25 14:04 | DI.CT.S_ITS ---
PROCEDURE: CT CERVICAL SPINE WO CON INDICATIONS: fall/intoxicated unwitnessed TECHNIQUE: Noncontrast 3 mm thick sections acquired from the skull base to the T4 level. Sagittal and coronal reformats were then constructed. For radiation dose reduction, the following was used: automated exposure control, adjustment of mA and/or kV according to patient size. COMPARISON: [facility], CT, CT HEAD/BRAIN WO CON, 07/25/2022, 14:06. [facility], CT, CT CERVICAL SPINE WO CON, 08/24/2019, 22:28. FINDINGS: Image quality: Excellent. Bones: No fractures or dislocations. Visualized superior ribs are intact. There is fusion seen from C4 through C6, which is best demonstrated on sagittal images. There is moderate to severe disc space narrowing seen at C2-C3, with at least moderate disc space narrowing at C6-C7. Partially bridging anterior osteophytes are seen at C6-C7. The bones overall are osteopenic. Soft tissues: Prevertebral soft tissues are normal in thickness. No paravertebral hematomas. No apical pneumothoraces. Atherosclerotic calcification is noted. 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 IMPRESSION: No acute fractures are seen. Degenerative and fusion changes are again seen. Dictated by: Eriberto Styles M.D. on 07/25/2022 at 13:41 Approved by: Eriberto Styles M.D. on 07/25/2022 at 13:42
--- NOTE | 2022-07-25 14:04 | DI.RAD.S_ITS ---
PROCEDURE: XR WRIST LT 2V INDICATIONS: fall TECHNIQUE: 2 views of the wrist were acquired. COMPARISON: None. FINDINGS: Bones: There is an angulated, comminuted, intra-articular fracture of the distal left radius. There is likely an acute ulnar styloid fracture is well. Soft tissues: No suspicious soft tissue calcifications. IMPRESSION: Distal radial and ulnar fractures. Dictated by: Jenae Saavedra M.D. on 07/25/2022 at 14:32 Approved by: Jenae Saavedra M.D. on 07/25/2022 at 14:33
[2022-07-25 14:14] VITALS: BP 163/94; PULSE 68; RESP 16; TEMP 37.1; O2SAT 97; BMI 23.6
[2022-07-25 14:31] VITALS: PULSE 65; O2SAT 91
[2022-07-25 14:32] VITALS: BP 163/94; PULSE 65; O2SAT 92
--- NOTE | 2022-07-25 14:57 | ED.FALL ---
HPI - Fall General Chief Complaint: Fall Stated Complaint: code stroke Time Seen by Provider: 07/25/22 14:03 Source: patient Mode of arrival: EMS Limitations: no limitations History of Present Illness HPI Narrative: Patient is a 71-year-old male. Initially arrived as a code stroke because of concerns for left-sided deficits. EMS was called to evaluate the patient after he tripped and fell out on the main Street here [place] town. There was reports that the patient has been drinking. Unsure of his last known normal. Upon arrival EMS stated that he was not moving his left side. Right after arrival EMS reports that they did further evaluation and found that the reason he was not moving his left arm was because he had significant discomfort in his left wrist. He had no other deficits. However patient did proceed directly to CT scan upon arrival. Patient states that he tripped and fell. He denies hitting his head. He states he is having pain in his left wrist but no other injuries. He does admit to drinking. Related Data Previous Rx's Medication Instructions Recorded [HYDYOCORTISONE] 1 gm topical BID ##30 08/20/16 cholecalciferol (vitamin D3) 50 2,000 unit PO QDAY #90 caps 08/21/16 mcg (2,000 unit) capsule (Vitamin D3) cyanocobalamin (vitamin B-12) 5,000 mcg sublingual QDAY ##90 08/21/16 5,000 mcg sublingual tablet (Vitamin B-12) multivitamin (Multiple Vitamins 1 tab PO QDAY #90 tabs 08/21/16 tablet) vitamin E 268 mg (400 unit) capsule 400 unit PO QDAY #90 caps 08/21/16 zoster vaccine live (PF) 19,400 0.5 ml SQ ONCE #0.5 mL 10/20/16 unit/0.65 mL subcutaneous suspension (Zostavax (PF)) melatonin 3 mg tablet 3 mg PO HS #90 tabs 10/27/16 acetaminophen 650 mg 650 mg PO Q8HP PRN #30 tabs 12/15/16 tablet,extended release lisinopril 20 mg tablet 20 mg PO QDAY #90 tabs 12/25/16 cyclobenzaprine 10 mg tablet 10 mg PO SEE INSTRUCTIONS #20 tabs 02/05/17 baclofen 10 mg tablet 0 PO TID #90 tabs 03/24/17 meclizine 25 mg tablet 25 mg PO Q DAY PRN PRN #30 tabs 08/19/17 aspirin 81 mg tablet,delayed 81 mg PO QDAY #90 tabs 09/17/17 release clopidogrel 75 mg tablet (Plavix) 75 mg PO QDAY #30 tabs 07/09/18 levetiracetam 1,000 mg tablet 1,000 mg PO BID #180 tabs 06/02/19 (Keppra) simvastatin 20 mg tablet See Rx Instructions .Route 10/18/19 .COMPLEX #30 tabs Allergies Allergy/AdvReac Type Severity Reaction Status Date / Time No Known Drug Allergies Allergy Verified 08/06/18 18:18 Review of Systems Review of Systems ROS Unobtainable: All systems reviewed & are unremarkable except as noted in HPI and below Patient History Medical History Alcohol use disorder (12/31/15) Cerebrovascular disease (06/14/15) 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) Dizziness of unknown cause (10/20/16) Pure hypercholesterolemia (04/14/16) Surgical History No significant past surgical history Family History Brother Age: 43 Heart disease Social History Smoking Status: Former smoker alcohol intake: current Smoking Status: Former smoker alcohol intake frequency: 3 or more drinks per day Substance Use Type: does not use Exam Initial Vital Signs Initial Vital Signs: Vital Signs Temperature 98.7 F 07/25/22 14:14 Pulse Rate 68 07/25/22 14:14 Respiratory Rate 16 07/25/22 14:14 Blood Pressure 163/94 H 07/25/22 14:14 Pulse Oximetry 97 07/25/22 14:14 Oxygen Delivery Method 07/25/22 14:14 Const General: cooperative and comfortable HENMT Head: normal to inspection and normocephalic Face and sinus: normal facial exam Mouth: oral mucosae normal Eyes General: Yes appearance normal, both eyes and all related structures Resp Effort & Inspection: normal respiratory effort Auscultation: clear to auscultation bilaterally Cardio Rate: regular rate Rhythm: regular rhythm Pulses: radial pulses present on the left GI Inspection: normal to inspection Back/Spine/Pelvis Cervical Spine: collar present Skin General: no rashes or lesions noted Neuro General: patient alert, patient awake, patient oriented x3 and moves all extremities Speech: speech normal Extrem Other: Patient has no gross deformities of bilateral lower extremities and the right upper extremities. His left shoulder and left elbow unremarkable. He does have fairly significant discomfort to palpation of the left wrist. His left hand is unremarkable. Psych Appearance: disheveled Procedures Orthopedic Splinting/Casting Injury #1: Side: left Upper Extremity Injury Location: wrist Upper Extremity Immobilizer: sugar tong splint Other Orthopedic Equipment: other (Sling) Post splinting neuro exam: intact Post splinting vascular exam: intact Placed by: Provider Course Orders Ordered: ED Orders 07/25/22 14:04 CT cervical spine wo con Stat CT head/brain wo con Stat XR wrist LT 2V Stat 07/25/22 14:15 EKG-12 Lead Routine Vital Signs Vital signs: Vital Signs - 8 hr 07/25/22 14:14 07/25/22 14:31 07/25/22 14:32 Temperature 98.7 F Pulse Rate 68 65 Respiratory Rate 16 Blood Pressure 163/94 H 163/94 H Pulse Oximetry 97 91 Oxygen Delivery Method Room Air 07/25/22 14:32 Temperature Pulse Rate 65 Respiratory Rate Blood Pressure Pulse Oximetry 92 Oxygen Delivery Method MDM - Fall Lab Data Attestation: I reviewed the patient's lab results. Result diagrams: 07/25/22 14:05 07/25/22 14:05 Labs: Lab Results 07/25/22 07/25/22 Range/Units 14:05 14:05 WBC 8.7 (4.5-11.0) X10^3/uL RBC 5.10 (4.5-5.9) X10^6/uL Hgb 15.5 (13.5-17.5) g/dL Hct 46.4 (41-53) % MCV 91.0 (80-100) fL MCH 30.4 (26-34) PG MCHC 33.4 (30-36) % RDW 13.3 (11.6-14.8) % Plt Count 206 (150-400) X10^3/uL Neut % (Auto) 71.3 (50-75) % Lymph % (Auto) 16.6 L (25-40) % Sanborn % (Auto) 10.7 (3-14) % Eos % (Auto) 0.7 L (2-4) % Baso % (Auto) 0.7 (0-2) % Neut # (Auto) 6200 (5415-7346) /uL Lymph # (Auto) 1400 (4616-6275) /uL Sanborn # (Auto) 900 (0-900) /uL Eos # (Auto) 100 (0-450) /uL Baso # (Auto) 100 (0-100) /uL Sodium 141 (137-145) mmol/L Potassium 3.3 L (3.4-5.1) mmol/L Chloride 106 (98-107) mmol/L Carbon Dioxide 20 L (22-32) mmol/L BUN 16 (9-20) mg/dL Creatinine 0.98 (0.66-1.25) mg/dL Estimated GFR > 60 (>60) mL/min BUN/Creatinine Ratio 16.3 (6-22) Glucose 113 H (80-110) mg/dL Calcium 8.7 (8.4-10.2) mg/dL Total Bilirubin 0.5 (0.2-1.3) mg/dL AST 28 (17-59) IU/L ALT 17 (<50) IU/L Alkaline Phosphatase 104 (38-126) U/L Total Protein 7.7 (6.3-8.2) g/dL Albumin 4.5 (3.5-5.0) g/dL Globulin 3.2 (1.7-4.1) g/dL Albumin/Globulin Ratio 1.4 (1.0-2.8) Imaging Data CT - cervical spine: Radiologist's Impression: [address] [address] [address] Scan Report Signed Patient: Yassine Rankin MR#: [id number] : 1950 Acct:[id number] Age/Sex: 71 / M Date of Service: 07/25/22 Loc: ED Accession Number: [id number] ?? Procedure: CT cervical spine wo con Ordering Provider: Willie Finch D.O. PROCEDURE:? CT CERVICAL SPINE WO CON ? INDICATIONS:? fall/intoxicated unwitnessed ? TECHNIQUE:? Noncontrast 3 mm thick sections acquired from the skull base to the T4 level.? Sagittal and coronal reformats were then constructed.? For radiation dose reduction, the following was used:? automated exposure control, adjustment of mA and/or kV according to patient size.? ? COMPARISON:? [facility], CT, CT HEAD/BRAIN WO CON, 07/25/2022, 14:06.? [facility], CT, CT CERVICAL SPINE WO CON, 08/24/2019, 22:28. ? FINDINGS:? Image quality:? Excellent.? ? Bones:? No fractures or dislocations.? Visualized superior ribs are intact.? ? There is fusion seen from C4 through C6, which is best demonstrated on sagittal images.? There is moderate to severe disc space narrowing seen at C2-C3, with at least moderate disc space narrowing at C6-C7.? Partially bridging anterior osteophytes are seen at C6-C7. ? The bones overall are osteopenic. ? Soft tissues:? Prevertebral soft tissues are normal in thickness.? No paravertebral hematomas.? No apical pneumothoraces.? Atherosclerotic calcification is noted.? ? 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 ? ? IMPRESSION:? No acute fractures are seen. ? Degenerative and fusion changes are again seen.? Dictated by: Eriberto Styles M.D. on 07/25/2022 at 13:41 ? ? Approved by: Eriberto Styles M.D. on 07/25/2022 at 13:42?? CT scan - head: Radiologist's Impression: [place] [address] CT Scan Report Signed Patient: Yassine Rankin MR#: [id number] : 1950 Acct:[id number] Age/Sex: 71 / M Date of Service: 07/25/22 Loc: ED Accession Number: [id number] ?? Procedure: CT head/brain wo con Ordering Provider: Willie Finch D.O. PROCEDURE:? CT HEAD/BRAIN WO CON ? INDICATIONS:? fall/intoxicated unwitnessed ? TECHNIQUE:? Noncontrast 4.5 mm thick angled axial sections acquired from the foramen magnum to the vertex, with coronal and sagittal reformats.? For radiation dose reduction, the following was used:? automated exposure control, adjustment of mA and/or kV according to patient size.? ? COMPARISON:? [facility], CT, HEAD WITHOUT CONTRAST, 04/07/2015, 9:19.? [facility], CT, CT HEAD/BRAIN WO CON, 08/24/2019, 22:28.? [facility], CT, CT HEAD/BRAIN WO CON, 11/25/2019, 20:03. ? FINDINGS:? Image quality:? Excellent.? ? CSF spaces:? Basal cisterns are patent.? No extra-axial fluid collections.? The ventricles are symmetric in size and shape.? ? Brain:? No intracranial bleeds or masses.? There is cerebral volume loss for age, with resultant ventricular and sulcal prominence.? There are periventricular and deep white matter chronic small vessel ischemic changes.? Areas of remote infarction can be seen, including lacunar infarctions involving the basal ganglia appear There is intracranial internal carotid artery atherosclerosis.? ? Skull and face:? Calvarium and visualized facial bones appear intact, without suspicious lesions.? ? Sinuses:? Visualized sinuses and mastoids are clear.? ? IMPRESSION:? No acute intracranial hemorrhage is seen.? ? No acute intracranial process is seen.? ? Remote, stable areas of mild infarction can be seen. ? Note is made of age-appropriate brain parenchymal volume loss and chronic small vessel ischemic changes. ? ? Dictated by: Eriberto Styles M.D. on 07/25/2022 at 13:39 ? ? Approved by: Eriberto Styles M.D. on 07/25/2022 at 13:40?? Chest x-ray: Radiologist's Impression: [address] [address] XRay Report Signed Patient: Yassine Rankin MR#: [id number] : 1950 Acct:[id number] Age/Sex: 71 / M Date of Service: 07/25/22 Loc: ED Accession Number: [id number] ?? Procedure: XR chest 1V Ordering Provider: Willie Finch D.O. PROCEDURE:? XR CHEST 1V ? INDICATIONS:? altered mental status ? TECHNIQUE:? One view of the chest was acquired.? ? COMPARISON:? [facility], CR, CHEST 1 VIEW, 04/05/2015, 22:19. ? FINDINGS:? ? Surgical changes and devices:? None.? ? Lungs and pleura:? Lungs are clear.? No pleural effusions or pneumothorax.? ? Mediastinum:? Mediastinal contours appear normal.? Heart size is normal.? ? Bones and chest wall:? No suspicious bony lesions.? Overlying soft tissues appear unremarkable.? ? IMPRESSION:? No acute cardiopulmonary findings. ? ? Dictated by: Jenae Saavedra M.D. on 07/25/2022 at 15:21 ? ? Approved by: Jenae Saavedra M.D. on 07/25/2022 at 15:21 Extremity x-ray #1: Radiologist's Impression: [place] [id number] XRay Report Signed Patient: Yassine Rankin MR#: [id number] : 1950 Acct:[id number] Age/Sex: 71 / M Date of Service: 07/25/22 Loc: ED Accession Number: [id number] ?? Procedure: XR wrist LT 2V Ordering Provider: Willie Finch D.O. PROCEDURE:? XR WRIST LT 2V ? INDICATIONS: fall ? TECHNIQUE:? 2 views of the wrist were acquired.? ? COMPARISON:? None. ? FINDINGS:? ? Bones:? There is an angulated, comminuted, intra-articular fracture of the distal left radius.? There is likely an acute ulnar styloid fracture is well. ? Soft tissues:? No suspicious soft tissue calcifications.? ? IMPRESSION:? Distal radial and ulnar fractures. ? ? Dictated by: Jenae Saavedra M.D. on 07/25/2022 at 14:32 ? ? Approved by: Jenae Saavedra M.D. on 07/25/2022 at 14:33 Extremity x-ray #2: Radiologist's Impression: [address] [address] XRay Report Signed Patient: Yassine Rankin MR#: [id number] : 1950 Acct:[id number] Age/Sex: 71 / M Date of Service: 07/25/22 Loc: ED Accession Number: [id number] ?? Procedure: XR wrist LT min 3V Ordering Provider: Willie Finch D.O. PROCEDURE:? XR WRIST LT MIN 3V ? INDICATIONS: post reduction ? TECHNIQUE:? 3 views of the wrist were acquired.? ? COMPARISON:? [facility], CR, XR WRIST LT 2V, 07/25/2022, 14:07. ? FINDINGS:? ? Bones:? There is been interval reduction of the angulated distal radial fracture.? The fracture fragments are in improved anatomic alignment. ? Soft tissues:? No suspicious soft tissue calcifications.? ? IMPRESSION:? Improved anatomic alignment status post reduction of the distal angulated radial fracture. ? ? Dictated by: Jenae Saavedra M.D. on 07/25/2022 at 16:30 ? ? Approved by: Jenae Saavedra M.D. on 07/25/2022 at 16:31?? ECG Data Attestation: I personally reviewed and interpreted this ECG as follows: Interpretation: Sinus rhythm Ventricular rate is 62 First-degree AV block FL interval of 2-8 milliseconds Right bundle-branch block No ST T wave changes MDM Narrative Medical decision making narrative: Code stroke was discontinued shortly after arrival after more information is provided by EMS and my evaluation. His head CT and cervical spine CT were unremarkable. His cervical collar was removed. Left wrist x-ray shows fracture. This was reduced as best as I could here in the ER and a splint was placed. He was given instructions with regard to the splint and also instructions for follow-up with orthopedics. Patient was able to stand and walk in the ER. He was clinically sober. He was given return precautions and follow-up instructions. He expressed understanding and agreement. Discharge Plan Departure Patient Disposition: Home Clinical Impression: Left wrist fracture Instructions: DI for Wrist Fracture, How to Take Care of Your Splint Activity Restrictions/Additional Instructions: The splint that was placed today does need to stay on it stay clean and stay dry. You do need to treat it like a cast. On Thursday contact the Orthopedic Department at the number provided below for a follow-up. Also contact your primary doctor for follow-up. Return to the emergency department for any new or worsening symptoms. Prescriptions: No Action [HYDYOCORTISONE] 1 gm Topical BID Qty: 30 5RF multivitamin [Multiple Vitamins] 1 EACH tablet 1 tab PO QDAY Qty: 90 3RF vitamin E 400 UNIT capsule 400 unit PO QDAY Qty: 90 3RF cholecalciferol (vitamin D3) [Vitamin D3] 2,000 UNIT capsule 2,000 unit PO QDAY Qty: 90 3RF cyanocobalamin (vitamin B-12) [Vitamin B-12] 5,000 MCG tablet, sublingual 5,000 mcg Sublingual QDAY Qty: 90 3RF zoster vaccine live (PF) [Zostavax (PF)] 19,400 UNIT/0.65 ML suspension for reconstitution 0.5 ml SQ ONCE Qty: 0.5 0RF melatonin 3 MG tablet 3 mg PO HS Qty: 90 3RF acetaminophen 650 MG tablet extended release 650 mg PO Q8HP PRNQty: 30 0RF lisinopril 20 MG tablet 20 mg PO QDAY Qty: 90 0RF cyclobenzaprine 10 MG tablet 10 mg PO SEE INSTRUCTIONS Qty: 20 0RF baclofen 10 MG tablet 0 PO TID Qty: 90 11RF meclizine 25 MG tablet 25 mg PO Q DAY PRN PRNQty: 30 0RF aspirin 81 MG tablet,delayed release (DR/EC) 81 mg PO QDAY Qty: 90 5RF clopidogrel [Plavix] 75 mg tablet 75 mg PO QDAY Qty: 30 0RF levetiracetam [Keppra] 1,000 mg tablet 1,000 mg PO BID Qty: 180 1RF simvastatin 20 mg tablet See Rx Instructions .ROUTE .COMPLEX Qty: 30 1RF Dose Instruction: GIVE 1 TABLET BY MOUTH AT BEDTIME Rx Instructions: GIVE 1 TABLET BY MOUTH AT BEDTIME. Needs appointment and labs prior to more fills of this medication Referrals: Kofi Tate MD [Primary Care Provider] - Daya Ayala MD [Physician] - Visit Report Forms: Patient Portal/API
--- NOTE | 2022-07-25 15:00 | DI.RAD.S_ITS ---
PROCEDURE: XR CHEST 1V INDICATIONS: altered mental status TECHNIQUE: One view of the chest was acquired. COMPARISON: [facility], , CHEST 1 VIEW, 04/05/2015, 22:19. FINDINGS: Surgical changes and devices: None. Lungs and pleura: Lungs are clear. No pleural effusions or pneumothorax. Mediastinum: Mediastinal contours appear normal. Heart size is normal. Bones and chest wall: No suspicious bony lesions. Overlying soft tissues appear unremarkable. IMPRESSION: No acute cardiopulmonary findings. Dictated by: Jenae Saavedra M.D. on 07/25/2022 at 15:21 Approved by: Jenae Saavedra M.D. on 07/25/2022 at 15:21
[2022-07-25 15:09] LABS: Add Manual Diff / Slide Review NO; Basophils Absolute Auto 100 /uL (0-100); Basophils Percent Auto 0.7 % (0-2); Eosinophils Absolute Auto 100 /uL (0-450); Eosinophils Percent Auto 0.7 % (2-4); Hematocrit 46.4 % (41-53); Hemoglobin 15.5 g/dL (13.5-17.5); Lymphocytes Absolute Auto 1400 /uL (1100-4500); Lymphocytes Percent Auto 16.6 % (25-40); Mean Corpuscular HGB Conc 33.4 % (30-36); Mean Corpuscular Hemoglobin 30.4 PG (26-34); Monocytes Absolute Auto 900 /uL (0-900); Monocytes Percent Auto 10.7 % (3-14); Neutrophils Absolute Auto 6200 /uL (1500-7000); Neutrophils Percent Auto 71.3 % (50-75); Platelet Count 206 X10^3/uL (150-400); Red Cell Distribution Width 13.3 % (11.6-14.8); White Blood Cell Count 8.7 X10^3/uL (4.5-11.0)
[2022-07-25 15:14] LABS: Alanine Aminotransferase 17 IU/L (<50); Albumin 4.5 g/dL (3.5-5.0); Albumin Globulin Ratio 1.4 (1.0-2.8); Alkaline Phosphatase 104 U/L (38-126); Aspartate Aminotransferase 28 IU/L (17-59); BUN Creatinine Ratio 16.3 (6-22); Bilirubin Total 0.5 mg/dL (0.2-1.3); Blood Urea Nitrogen 16 mg/dL (9-20); Calcium 8.7 mg/dL (8.4-10.2); Carbon Dioxide 20 mmol/L (22-32); Chloride 106 mmol/L (98-107); Estimated Glomerular Filt Rate > 60 mL/min (>60); Globulin 3.2 g/dL (1.7-4.1); Glucose 113 mg/dL (80-110); HEMOLYSIS < 15 (0-50); Potassium 3.3 mmol/L (3.4-5.1); Sodium 141 mmol/L (137-145); Total Protein 7.7 g/dL (6.3-8.2)
--- NOTE | 2022-07-25 15:47 | DI.RAD.S_ITS ---
PROCEDURE: XR WRIST LT MIN 3V INDICATIONS: post reduction TECHNIQUE: 3 views of the wrist were acquired. COMPARISON: [facility], CR, XR WRIST LT 2V, 07/25/2022, 14:07. FINDINGS: Bones: There is been interval reduction of the angulated distal radial fracture. The fracture fragments are in improved anatomic alignment. Soft tissues: No suspicious soft tissue calcifications. IMPRESSION: Improved anatomic alignment status post reduction of the distal angulated radial fracture. Dictated by: Jenae Saavedra M.D. on 07/25/2022 at 16:30 Approved by: Jenae Saavedra M.D. on 07/25/2022 at 16:31
--- NOTE | 2022-07-25 16:30 | PC.NURSE ---
Pt ambulated to and from bathroom with steady gait.
[2022-07-25 16:38] VITALS: BP 160/84; PULSE 80; RESP 18; O2SAT 95
== END 2022-07-25 16:59 | disposition home or self-care (01) ==
PROVIDERS: Emergency Provider Emergency Medicine; Family Provider Family Medicine; PCP Family Medicine
DX: S52.502A Unspecified fracture of the lower end of left radius, initial encounter for closed fracture (principal); S52.602A Unspecified fracture of lower end of left ulna, initial encounter for closed fracture; F10.129 Alcohol abuse with intoxication, unspecified; R41.82 Altered mental status, unspecified; W01.0XXA Fall on same level from slipping, tripping and stumbling without subsequent striking against object, initial encounter
CPT/HCPCS: 25605; 36415; 70450; 71045; 72125; 73100; 73110; 80053; 85025; 93005; 99284